=== PATIENT | male | born 1960 | race Caucasian/White ===

== ENCOUNTER → 2024-03-24 13:29 | Outpatient (REF) | payer BC, SELFPAY | LOC: HWRAD 13:29 | PROVIDERS: ATTENDING PHYSICIAN Family Medicine | DX: Z87.891 Personal history of nicotine dependence (principal) | CPT/HCPCS: 71271 ==

== ENCOUNTER → 2025-03-28 13:05 | Outpatient (REF) | payer BC, SELFPAY | LOC: HWRAD 13:05 | PROVIDERS: ATTENDING PHYSICIAN Family Medicine | DX: Z87.891 Personal history of nicotine dependence (principal) | CPT/HCPCS: 71271 ==